=== PATIENT | female | born 1980 | race Caucasian/White ===

== ENCOUNTER 2017-07-29 19:11 | Emergency (ER) | payer OTHER ==
[~2017-07-29 19:11] MED LIST: ACULAR10 ML OD; ALPRAZOLAM PO; AMITRYPTYLINE PO; BIRTH CONTROL PILL; CORTISPORIN-TC10 M1 OT; FLEXERIL10 MG PO; IBUPROFEN800 MG PO; LIDODERM30 EA TOP; NEURONTIN300 MG PO; NORFLEX100 M1 PO; PHENERGAN PO; PHENERGAN25 MG PO; POLYTRIM EYE DR10 ML; POLYTRIM EYE DR10 ML OD; VOLTAREN75 MG PO; ZYRTEC PO
== END 2017-07-29 21:15 | disposition left against medical advice (07) ==
LOC: SED 19:11
DX: Z53.21 Procedure and treatment not carried out due to patient leaving prior to being seen by health care provider (principal)